=== PATIENT | female | born 1975 | race Caucasian/White ===

== ENCOUNTER 2023-06-16 23:40 | Emergency (ER) | payer MEDICAID, SELFPAY ==
[2023-06-16 23:41] VITALS: BP 115/77; PULSE 68; RESP 16; TEMP 35.9; O2SAT 100; BMI 21.0
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
[2023-06-17] MEDS: Mag Hydrox/Al Hydrox/Simeth 30 ML UDC PO (00:39)
== END 2023-06-17 00:43 | disposition home or self-care (01) ==
PROVIDERS: Emergency Provider Emergency Medicine; Visit Provider Emergency Medicine
DX: S10.11XA Abrasion of throat, initial encounter (principal); X58.XXXA Exposure to other specified factors, initial encounter; Y93.89 Activity, other specified; R07.0 Pain in throat; R07.9 Chest pain, unspecified
CPT/HCPCS: 99282

== ENCOUNTER 2023-06-17 03:15 | Emergency (ER) | payer MEDICAID, SELFPAY ==
[2023-06-17 03:18] VITALS: BP 123/91; PULSE 74; RESP 16; TEMP 36.1; O2SAT 100; BMI 21.4
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
--- NOTE | 2023-06-17 03:42 | EKG12_ITS ---
Test Reason : DYSRHYTHMIA Blood Pressure : / mmHG Vent. Rate : 063 BPM Atrial Rate : 063 BPM P-R Int : 146 ms QRS Dur : 080 ms QT Int : 430 ms P-R-T Axes : 059 081 074 degrees QTc Int : 440 ms Normal sinus rhythm Normal ECG No previous ECGs available Confirmed by ANGELIC POEWRS, SHANE ([id number]), newspaper editor SHIRIN DELANEY ([id number]) on 06/19/2023 1:30:28 PM Referred By: Confirmed By:SHANE ATWOOD MD
== END 2023-06-17 05:12 | disposition home or self-care (01) ==
PROVIDERS: Emergency Provider Emergency Medicine; Visit Provider Emergency Medicine
DX: J02.9 Acute pharyngitis, unspecified (principal); F32.A Depression, unspecified; Z79.899 Other long term (current) drug therapy; K13.79 Other lesions of oral mucosa
CPT/HCPCS: 71045; 93005; 99283